=== PATIENT | female | born 1950 ===

== ENCOUNTER 2020-08-23 14:10 | Emergency (ER) | payer OTHER ==
[2020-08-23] MEDS ORDERED: cloNIDine 0.2 MG TAB PO ONE (21:57)
--- NOTE | 2020-08-23 21:59 | XRay Report ---
CHEST 2 VIEWS INDICATION: edema. COMPARISON: None FINDINGS: Support devices: None. Heart: Within normal limits. Lungs: No acute air space or interstitial disease. Pleura: No significant pleural effusion. No pneumothorax. Additional findings: None. IMPRESSION: 1. No acute findings. Signer Name: Nik Hester MD Signed: 08/23/2020 9:54 PM Workstation Name: [id number]
--- NOTE | 2020-08-23 22:03 | Emergency Department Report ---
HPI - General Chief Complaint: Extremity Injury, Lower Time Seen by Provider: 08/23/20 21:42 - HPI HPI: Room 6 The patient is a 70-year-old female present with a chief complaint of right shoulder left thumb pain after a fall. The patient states this morning she slipped off of her bed since the bed had soaked her bed sheets and plastic on it causing her to fall onto the floor. Patient states she injured her right shoulder and left thumb during this fall. The patient states she was on the floor for approximate 1 hour before family helped her up. Patient denies loss of consciousness. Patient complains of pain in her right shoulder and left arm and gives it a score of 9/10. The patient also states she was taking a diuretic but ran out 4 weeks ago. Patient complains of bilateral lower extremity edema ED Past Medical Hx - Past Medical History Previous Medical History?: Yes Hx Hypertension: Yes Hx Diabetes: Yes Additional medical history: back pain - Surgical History Past Surgical History?: No - Family History Family history: no significant - Social History Substance Use Type: None - Medications Home Medications: Home Medications Medication Instructions Recorded Confirmed Last Taken Type Furosemide [Lasix] 20 mg PO QDAY #20 tablet 08/24/20 Unknown Rx Gentamicin 0.3% Ophth Soln 2 drops OS Q4H #1 bottle 08/24/20 Unknown Rx Potassium Chloride [K-Dur] 20 meq PO QDAY #2 tablet 08/24/20 Unknown Rx traMADoL [Ultram] 50 mg PO Q6HR PRN #10 tablet 08/24/20 Unknown Rx ED Review of Systems ROS: Stated complaint: SWOLLEN LT LEG Other details as noted in HPI Constitutional: no symptoms reported Eyes: denies: eye pain ENT: denies: throat pain Respiratory: no symptoms reported Cardiovascular: denies: chest pain Endocrine: no symptoms reported Gastrointestinal: denies: abdominal pain Genitourinary: denies: dysuria Musculoskeletal: arthralgia, myalgia Neurological: denies: headache Physical Exam - Physical Exam Vital Signs: Vital Signs 08/23/20 08/23/20 21:02 21:05 Temperature 98 F Pulse Rate 91 H Respiratory 18 Rate Blood Pressure 248/132 [Left] Blood Pressure 232/108 [Right] O2 Sat by Pulse 96 Oximetry Physical Exam: GENERAL: The patient is well-developed well-nourished female lying on stretcher not appearing to be in acute distress. [] HEENT: Normocephalic. Atraumatic. Extraocular motions are intact. Yellow drainage coming from left eye. Patient has moist mucous membranes. NECK: Supple. Trachea midline CHEST/LUNGS: Clear to auscultation. There is no respiratory distress noted. HEART/CARDIOVASCULAR: Regular. There is no tachycardia. There is no gallop rub or murmur. ABDOMEN: Abdomen is soft, nontender. Patient has normal bowel sounds. There is no abdominal distention. SKIN: There is no rash. There is 1+ bilateral lower extremity pitting edema. There is no diaphoresis. NEURO: The patient is awake, alert, and oriented. The patient is cooperative. The patient has no focal neurologic deficits. The patient has normal speech MUSCULOSKELETAL: There is tenderness to palpation of the right shoulder and left thumb. No deformity seen. There is no tenderness to palpation of the axial spine. There is no evidence of acute injury. ED Course Vital Signs 08/23/20 08/23/20 21:02 21:05 Temperature 98 F Pulse Rate 91 H Respiratory 18 Rate Blood Pressure 248/132 [Left] Blood Pressure 232/108 [Right] O2 Sat by Pulse 96 Oximetry ED Medical Decision Making - Lab Data Result diagrams: 08/23/20 21:53 08/23/20 21:53 Laboratory Tests 08/23/20 08/23/20 08/23/20 21:53 21:53 21:53 WBC 10.4 RBC 4.20 Hgb 12.3 Hct 37.3 MCV 89 MCH 29 MCHC 33 RDW 14.8 Plt Count 298 PT INR APTT Sodium 139 Potassium 3.0 L Chloride 108.1 H Carbon Dioxide 21 L Anion Gap 13 BUN 21 H Creatinine 2.4 H Estimated GFR 20 BUN/Creatinine Ratio 9 Glucose 247 H Calcium 8.8 Total Bilirubin 0.20 AST 23 ALT 14 Alkaline Phosphatase 118 Total Creatine Kinase NT-Pro-B Natriuret Pep 2708 H Total Protein 5.8 L Albumin 2.1 L Albumin/Globulin Ratio 0.6 08/23/20 08/23/20 21:53 21:59 WBC RBC Hgb Hct MCV MCH MCHC RDW Plt Count PT 12.5 INR 0.94 APTT 30.9 Sodium Potassium Chloride Carbon Dioxide Anion Gap BUN Creatinine Estimated GFR BUN/Creatinine Ratio Glucose Calcium Total Bilirubin AST ALT Alkaline Phosphatase Total Creatine Kinase 503 H NT-Pro-B Natriuret Pep Total Protein Albumin Albumin/Globulin Ratio - EKG Data -: EKG Interpreted by Me EKG shows normal: sinus rhythm Rate: normal - EKG Data When compared to previous EKG there are: previous EKG unavailable Interpretation: other (No ischemic changes seen) - Radiology Data Radiology results: report reviewed (Chest x-ray, right shoulder x-ray, left arm x-ray), image reviewed (Chest x-ray, right shoulder injury, left thumb x-ray) interpreted by me: Chest x-ray-no focal infiltrates, no pneumothorax, no foreign body seen Right shoulder x-ray-no acute fracture, no dislocation. No foreign body seen Left thumb x-ray-no acute fracture, no dislocation. No foreign body seen. [address] [address] XRay Report Signed Patient: BARRY GIANG MR#: [id number] : 1950 Acct:[id number] Age/Sex: 70 / F ADM Date: 08/23/20 Loc: ED Attending Dr: Ordering Physician: BONNIE ROSENTHAL DO Date of Service: 08/23/20 Procedure(s): XR chest routine 2V Accession Number(s): [id number] cc: BONNIE ROSENTHAL DO Fluoro Time In Minutes: CHEST 2 VIEWS INDICATION: edema. COMPARISON: None FINDINGS: Support devices: None. Heart: Within normal limits. Lungs: No acute air space or interstitial disease. Pleura: No significant pleural effusion. No pneumothorax. Additional findings: None. IMPRESSION: 1. No acute findings. Signer Name: Nik Hester MD Signed: 08/23/2020 9:54 PM Workstation Name: [id number] Transcribed By: KEKE Dictated By: Nik Hester MD Electronically Authenticated By: Nik Hester MD Signed Date/Time: 08/23/202153 DD/ 53 TD/TT: [address] [address] XRay Report Signed Patient: BARRY GIANG MR#: [id number] : 1950 Acct:[id number] Age/Sex: 70 / F ADM Date: 08/23/20 Loc: ED Attending Dr: Ordering Physician: SALINA MERINO MD Date of Service: 08/23/20 Procedure(s): XR shoulder 2+V RT Accession Number(s): [id number] cc: SALINA MERINO MD Fluoro Time In Minutes: RIGHT SHOULDER 3 VIEWS 20-25 INDICATION: Pain after fall COMPARISON: None available. FINDINGS: No fractures or dislocations are seen. Mild acromioclavicular and glenohumeral degenerative changes are noted. Chronic appearing calcifications are seen on the rotator cuff area. Abnormal bone island is seen in the proximal humerus. Signer Name: Anthony Goss MD Signed: 08/23/2020 11:43 PM Workstation Name: [id number] Transcribed By: ABEL Dictated By: Anthony Goss MD Electronically Authenticated By: Anthony Goss MD Signed Date/Time: 08/23/202342 DD/ 41 TD/TT: [address] [address] XRay Report Signed Patient: BARRY GIANG MR#: [id number] : 1950 Acct:[id number] Age/Sex: 70 / F ADM Date: 08/23/20 Loc: ED Attending Dr: Ordering Physician: SALINA MERINO MD Date of Service: 08/23/20 Procedure(s): XR finger(s) 2+V LT Accession Number(s): [id number] cc: SALINA MERINO MD Fluoro Time In Minutes: LEFT THUMB 3 VIEWS 20-30 INDICATION: Left thumb pain after fall COMPARISON: None available. FINDINGS: Mild artifact is seen. Arthritic changes are noted in the wrist and hand. No fractures or dislocations are seen. Signer Name: Anthony Goss MD Signed: 08/23/2020 11:49 PM Workstation Name: [id number] Transcribed By: ABEL Dictated By: Anthony Goss MD Electronically Authenticated By: Anthony Goss MD Signed Date/Time: 08/23/202348 DD/ 47 TD/TT: - Differential Diagnosis Shoulder contusion, AC separation, thumb contusion Critical care attestation.: If time is entered above; I have spent that time in minutes in the direct care of this critically ill patient, excluding procedure time. ED Disposition Clinical Impression: Contusion of right shoulder, Contusion of left thumb, Conjunctivitis, Peripheral edema Disposition: TO HOME OR SELFCARE Is pt being admited?: No Does the pt Need Aspirin: No Condition: Stable Additional Instructions: Return to the emergency department should you develop worsening symptoms, inability to tolerate food or liquids, high fever or any other concerns Prescriptions: Gentamicin 0.3% Ophth Soln 2 drops OS Q4H #1 bottle Potassium Chloride [K-Dur] 20 meq PO QDAY #2 tablet Furosemide [Lasix] 20 mg PO QDAY #20 tablet traMADoL [Ultram] 50 mg PO Q6HR PRN #10 tablet PRN Reason: Pain Referrals: ELINA HWANG DO [Primary Care Provider] - 3-5 Days Time of Disposition: 00:07
[2020-08-23 22:23] LABS: Hematocrit 37.3 % (30.3-42.9); Hemoglobin 12.3 gm/dl (10.1-14.3); Mean Corpuscular HGB Conc 33 % (30-34); Mean Corpuscular Volume 89 fl (79-97); Platelet Count 298 K/mm3 (140-440); Red Cell Distribution Width 14.8 % (13.2-15.2)
[2020-08-23 22:32] LABS: Albumin 2.1 g/dL (3.9-5); Calcium 8.8 mg/dL (8.4-10.2)
[2020-08-23 22:33] LABS: INR 0.94 (0.87-1.13)
[2020-08-23 22:34] LABS: Partial Thromboplastin Time 30.9 Sec. (24.2-36.6)
[2020-08-23] MEDS ORDERED: traMADol 50 MG TAB PO ONE (23:10)
[2020-08-23] MEDS ORDERED: IBUPROFEN 800 MG TAB PO ONE (23:10)
--- NOTE | 2020-08-23 23:47 | XRay Report ---
RIGHT SHOULDER 3 VIEWS 20-25 INDICATION: Pain after fall COMPARISON: None available. FINDINGS: No fractures or dislocations are seen. Mild acromioclavicular and glenohumeral degenerative changes are noted. Chronic appearing calcifications are seen on the rotator cuff area. Abnormal bone island is seen in the proximal humerus. Signer Name: Anthony Goss MD Signed: 08/23/2020 11:43 PM Workstation Name: [id number]
--- NOTE | 2020-08-23 23:53 | XRay Report ---
LEFT THUMB 3 VIEWS 20-30 INDICATION: Left thumb pain after fall COMPARISON: None available. FINDINGS: Mild artifact is seen. Arthritic changes are noted in the wrist and hand. No fractures or d islocations are seen. Signer Name: Anthony Goss MD Signed: 08/23/2020 11:49 PM Workstation Name: [id number]
[2020-08-23] MEDS ORDERED: POTASSIUM CHLORIDE ER 20 MEQ TAB PO ONE (23:58)
[2020-08-24 01:00] VITALS: BP 165/88
== END 2020-08-24 01:19 | disposition home or self-care (01) ==
LOC: ED 14:10
DX: S40.011A Contusion of right shoulder, initial encounter (principal); S60.012A Contusion of left thumb without damage to nail, initial encounter; H10.9 Unspecified conjunctivitis; R60.9 Edema, unspecified; I10 Essential (primary) hypertension; E11.9 Type 2 diabetes mellitus without complications; Z79.899 Other long term (current) drug therapy; Z88.8 Allergy status to other drugs, medicaments and biological substances; W01.0XXA Fall on same level from slipping, tripping and stumbling without subsequent striking against object, initial encounter; Y93.89 Activity, other specified; Y92.89 Other specified places as the place of occurrence of the external cause; Y99.8 Other external cause status
CPT/HCPCS: 36415; 71046; 80053; 82550; 83880; 85027; 85610; 85730; 93005